=== PATIENT | female | born 1985 | race Caucasian/White ===

== ENCOUNTER 2017-04-15 23:11 | Emergency (ER) | payer BC ==
[~2017-04-15] VITALS: Ht 167.6 cm; Wt 75.2 kg
[~2017-04-15 23:11] MED LIST: NO HOME MEDICATIONS
[2017-04-15 23:13] VITALS: BP 128/85; TEMP 98.5
[2017-04-15] MEDS ORDERED: CELEXA10 MG PO (23:16)
[2017-04-16 00:08] LABS: BASO # 0.1 (0.0-0.2); BASO % 0.9 % (0.0-2.0); EOS # 0.2 (0.0-0.7); EOS % 2.7 % (0-4.0); GRAN # 3.7 (1.4-6.5); GRAN % 54.4 % (42.2-75.2); LYMPH # 2.3 (1.2-3.4); LYMPH % 33.2 % (20.0-51.0); MEAN CELL VOLUME 90 fl (80.0-100.0); MEAN CORPUSCULAR HEMOGLOBIN 30 pg (27.0-31.0); MEAN CORPUSCULAR HGB CONC 33 g/dl (33.0-37.0); MEAN PLATELET VOLUME 10.8 fl (7.4-10.4); MONO # 0.6 (0.1-0.6); MONO % 8.7 % (1.7-9.3); PLATELET COUNT 285 K/mm3 (130-400); RED BLOOD COUNT 4.07 M/mm3 (4.10-5.30); WHITE BLOOD COUNT 6.8 K/mm3 (4.8-10.8)
[2017-04-16 00:10] LABS: HEMATOCRIT 36.6 % (37.0-47.0)
[2017-04-16 00:17] LABS: CALCIUM 8.7 mg/dL (8.4-10.2); CREATININE, serum 0.78 mg/dL (0.52-1.25); POTASSIUM 3.6 mmol/L (3.4-5.0)
[2017-04-16 00:41] VITALS: PULSE 78
== END 2017-04-16 00:42 | disposition home or self-care (01) ==
LOC: COL.ER 23:11
PROVIDERS: Physician Assistant
DX: K62.5 Hemorrhage of anus and rectum (principal); K21.9 Gastro-esophageal reflux disease without esophagitis

== ENCOUNTER → 2017-05-02 | Outpatient (CLI) | payer BC ==
[~2017-05-02] MED LIST changes: +CELEXA10 MG PO
== END ==
LOC: COL.RAD 11:17
DX: J32.0 Chronic maxillary sinusitis (principal)

== ENCOUNTER 2019-11-26 11:57 | Inpatient (IN) | payer BC ==
[~2019-11-26] VITALS: Ht 170.2 cm; Wt 81.8 kg
[2019-11-26] VITALS (41 sets, daily range): BP systolic 98–140; BP diastolic 52–77; PULSE 59–100; TEMP 98.2–98.8
--- NOTE | 2019-11-26 12:00 | NUR ---
Pt here with c/o ?SROM this AM after routine check at the [facility]. States she felt leaking once but then hasn't felt any since. Pt to [facility], explained. 39 weeks gestation, G3L0. SVE: amniotrace negative, brown/red discharge noted on glove. SVE: 2-3//-2 and bag of wtaers palpated. Pt states "she stripped my membranes." Pt states contractions have been every 2-4 minutes. Assessment complete. Pt with hx of GERD, anxiety/depression and migraines. States baby is active. Breathing through contractions every 2-3 minutes. 1215:Pt up and standing at the bedside. VSS. FHR reactive.
[2019-11-26] MEDS ORDERED: PRENATAL PO (12:20)
[2019-11-26 14:32] LABS: BASO % 0.3 % (0.0-2.0); EOS % 0.1 % (0-4.0); GRAN # 11.9 (1.4-6.5); GRAN % 82.8 % (42.2-75.2); HEMATOCRIT 37.7 % (37.0-47.0); HEMOGLOBIN 12.7 g/dl (12.5-16.0); LYMPH # 1.5 (1.2-3.4); LYMPH % 10.6 % (20.0-51.0); MEAN CELL VOLUME 87 fl (80.0-100.0); MEAN CORPUSCULAR HEMOGLOBIN 29 pg (27.0-31.0); MEAN CORPUSCULAR HGB CONC 34 g/dl (33.0-37.0); MEAN PLATELET VOLUME 12.5 fl (7.4-10.4); MONO # 0.8 (0.1-0.6); MONO % 5.6 % (1.7-9.3); PLATELET COUNT 216 K/mm3 (130-400); RED BLOOD COUNT 4.32 M/mm3 (4.10-5.30); REDCELL DISTRIBUTION WIDTH-CV 12.8 % (11.5-14.5)
--- NOTE | 2019-11-26 15:00 | NUR ---
1535- ROLES TO THE BEDSIDE. DISCUSSED PLAN OF CARE. SVE /-1. AROM WITH THICK MECONIUM STAINED FLUID. DISCUSSED PRECAUTIONS WITH PARENTS, THEY DENIED QUESTIONS.
--- NOTE | 2019-11-26 15:30 | NUR ---
1522- FHR DECELERATION NOTED DOWN TO 65BPM. PATIENT REPOSITIONED TO RIGHT LATERAL. EFM TRACING INTERMITTENTLY, ADJUSTED. 1525- FHR TRACING WELL, MODERATE VARIABLITY NOTED THROUGHOUT, RETURNING TO BASELINE.
--- NOTE | 2019-11-26 16:45 | NUR ---
1627- Pt supine for duke placement. 1630- Duke placed without difficulty, attempted SVE. Pt state she "doesnt feel well." FHR deceleration noted down to 90bpm. 1633- Pt assisted to RL. FHR returned to baseline of 135bpm. SVE by AUGUST Ramirez /-1, large amount of pea soup colored and textured fluid noted. 1635- FHR variable noted 1636- FHR variable with slow return to baseline over 50 seconds. After recovery to baseline, minimal variability noted. Subtle late decels noted intermittently over the next 15mins. 1648- FHR variability improves to moderate.
--- NOTE | 2019-11-26 18:40 | NUR ---
FHT's with deceleration to 80's, onset before peak of contraction, continues 70's-80's over 2 minutes, to R wedge, FHT's gtadually to baseline 110's, total duration of decel 3 minutes.
--- NOTE | 2019-11-26 19:20 | NUR ---
Pitocin gtt augmentation started per order and protocol, after explanation to pt and spouse. Questions invited and answered.
--- NOTE | 2019-11-26 20:30 | NUR ---
Roles into room, SVE as noted. Plan of care reviewed; increase Pitocin to increase effectiveness of contractions, continue to monitor FHR. Questions invited and answered
--- NOTE | 2019-11-26 22:15 | NUR ---
FHT's with deceleration to 60's with peak of ontraction, returns to baseline before end of contraction.
--- NOTE | 2019-11-26 22:20 | NUR ---
FHT's with decel to 60's with contraction, returns to baseline by end of contraction then back down to 60's with onset of next contraction, returns to bsline 130's with cessation of contraction.
--- NOTE | 2019-11-26 22:29 | NUR ---
FHT's with decel to 60's, after peak of contraction, continues 60's-90's after cessation of contraction. LR to bolus rate, SVE 5/100 FSE placed, to Right lateral after placement.
--- NOTE | 2019-11-26 22:45 | NUR ---
FHT's woth loss of FSE tracing, US reapplied, FSE and US cincurrently recording 60's with peak of uc. Pitocin gtt off, FHT's with rapid retuen to baseline by end of UC. FHT's with deceleration to 60's with peak of next UC, concurrent FSE and US tracing.
--- NOTE | 2019-11-26 22:55 | NUR ---
To Supine for pericare and FSE replacement. FHT's to 60's with contraction.
--- NOTE | 2019-11-26 23:00 | NUR ---
Roles into room, SVE unchanged. Reviews EFM tracing. Discusses plan of care with pt and spouse. 2310 C/S called. Questions invited and answered. ABD heatherub, GAGANE dc'd, LR continues at bolus rate. To C/S room per bed.
[2019-11-27] VITALS (17 sets, daily range): BP systolic 108–130; BP diastolic 56–74; PULSE 60–96; TEMP 97.9–98.7
--- NOTE | 2019-11-27 00:45 | NUR ---
To room via bed. oriented to romm, plan of care. continues . attentive at bedside.
--- NOTE | 2019-11-27 05:00 | NUR ---
Up to bathroom with steady gait. Long catheter dc'd, pericare performed. Clean gown on and back to bed.
[2019-11-27 06:37] LABS: HEMATOCRIT 32.2 % (37.0-47.0); HEMOGLOBIN 10.6 g/dl (12.5-16.0)
[2019-11-28 01:30] VITALS: BP 113/70; PULSE 72; TEMP 98.1
[2019-11-28 07:40] VITALS: BP 103/59; PULSE 66; TEMP 97.7
[2019-11-28] MEDS ORDERED: IBU600 MG PO (08:58)
[2019-11-28] MEDS ORDERED: PERCOCET 325 MG1 TA2 PO (08:59)
[2019-11-28 16:01] VITALS: BP 120/72; PULSE 63; TEMP 98
[2019-11-28 20:30] VITALS: BP 124/58; PULSE 70; TEMP 98
--- NOTE | 2019-11-28 20:50 | NUR ---
Patient in bathroom and calls out. patient passes apple sized clot in toilet. no free flow bleeding noted. Patient back in bed, fundus massaged, firm and minimal free flow noted with fundal massage. encouraged patient to empty bladder frequently and notify nurse if she continues to pass clots. patient verbalizes understanding.
[2019-11-29 02:30] VITALS: BP 102/61; PULSE 64; TEMP 98.2
[2019-11-29 08:36] VITALS: BP 125/67; PULSE 70; TEMP 98.5
== END 2019-11-29 13:20 | disposition home or self-care (01) | DRG 788 ==
LOC: LDRO 11:57 → LDR 11:59 → LDRO 11:59 → LDR 12:15 → OB 11-27 01:00
PROVIDERS: ADMIT Obstetrics & Gynecology
PROC: 10D00Z1 Extraction of Products of Conception, Low, Open Approach (ICD-10-PCS; principal; 2019-11-27)
DX: O48.0 Post-term pregnancy (principal); Z37.0 Single live birth; O76 Abnormality in fetal heart rate and rhythm complicating labor and delivery; O77.0 Labor and delivery complicated by meconium in amniotic fluid; F41.9 Anxiety disorder, unspecified; O99.344 Other mental disorders complicating childbirth; Z3A.39 39 weeks gestation of pregnancy
CPT/HCPCS: J0690; J1100; J1885; J2175; J2405; J2590; J7120

== ENCOUNTER 2022-08-22 15:18 | Outpatient (CLI) | payer BC ==
[~2022-08-22] VITALS: Ht 167.6 cm; Wt 87.3 kg
[~2022-08-22 15:18] MED LIST changes: +IBU600 MG PO; +PERCOCET 325 MG1 TA2 PO; +PRENATAL PO
--- NOTE | 2022-08-22 15:20 | NUR ---
PT AMBULATORY TO LR2. PT CHANGED INTO CLEAN GOWN. FHR MONITOR/TOCO APPLIED. PT DENIES VAGINAL BLEEDING, LEAKING OF FLUID, OR CONTRACTIONS. PT WENT TO OFFICE COMPLAINING OF DECREASED MOVEMENT. PT SENT OVER FROM OFFICE FOR NON REACTIVE NST. PLAN OF CARE DISCUSSED. PT VALERIEES UNDERSTANDING.
[2022-08-22] MEDS ORDERED: CLARITIN 1010 MG/TAB PO (15:42)
[2022-08-22] MEDS ORDERED: ASPIRIN 81M81 MG/TA2 PO (15:43)
--- NOTE | 2022-08-22 15:50 | NUR ---
PT STATES DOES NOT FEEL CONTRACTIONS THAT ARE PICKING UP ON TOCO
[2022-08-22 16:00] VITALS: BP 122/77; PULSE 71; TEMP 98.4
== END 2022-08-22 16:35 | disposition home or self-care (01) ==
LOC: LDRO 15:18
DX: O36.8330 Maternal care for abnormalities of the fetal heart rate or rhythm, third trimester, not applicable or unspecified (principal); Z3A.35 35 weeks gestation of pregnancy

== ENCOUNTER 2022-09-06 19:37 | Inpatient (IN) | payer BC ==
[2022-09-06] VITALS (14 sets, daily range): BP systolic 113–133; BP diastolic 57–80; PULSE 63–92; TEMP 98
[~2022-09-06] VITALS: Ht 170.2 cm; Wt 86.8 kg
[~2022-09-06 19:37] MED LIST changes: +ASPIRIN 81M81 MG/TA2 PO; +CLARITIN 1010 MG/TAB PO
--- NOTE | 2022-09-06 19:40 | NUR ---
G4L1. 37.4. Ambulatory to LDR 5 with spouse. Clean gown on. EFM and TOCO explained and applied. Pt states around 1845 she had a big contraction and a gush of fluid. Reports clear fluid noted. Denies any contractions since then. Denies vaginal bleeding and reports good movement. Plan of care explained. 1951: Amniotrace positive with clear fluid noted. SVE /-3. 2006: called and updated on pt's status. See physican notification. Admit orders received. 2019: IV started and labs obtained via IV site. LR bolus infusing without difficulty. 2029: at bedside to discuss surgery. Pt and spouse denies questions at that time. Pt prepped for surgery. 2048: Pt off monitors and ambulatory to OR for surgery with this RN and spouse.
[2022-09-06] MEDS ORDERED: CELEXA 20MG20 MG/TAB PO (20:01)
[2022-09-06 20:53] LABS: BASO % 0.3 % (0.0-2.0); EOS # 0.1 K/mm3 (0.0-0.7); EOS % 0.7 % (0.0-4.0); GRAN # 11.1 K/mm3 (1.4-6.5); GRAN % 78.5 % (42.2-75.2); HEMOGLOBIN 11.6 g/dl (12.5-16.0); LYMPH # 1.9 K/mm3 (1.2-3.4); LYMPH % 13.6 % (20.0-51.0); MEAN CELL VOLUME 85 fl (80.0-100.0); MEAN CORPUSCULAR HEMOGLOBIN 29 pg (27-31); MEAN CORPUSCULAR HGB CONC 34 g/dl (33.0-37.0); MONO # 0.9 K/mm3 (0.1-0.6); MONO % 6.4 % (1.7-9.3); PLATELET COUNT 216 K/mm3 (130-400); REDCELL DISTRIBUTION WIDTH-CV 13.4 % (11.5-14.5)
[2022-09-06 20:55] LABS: HEMATOCRIT 33.9 % (37.0-47.0)
[2022-09-07] VITALS (8 sets, daily range): BP systolic 116–135; BP diastolic 61–83; PULSE 65–80; TEMP 97.3–98.6
--- NOTE | 2022-09-07 06:42 | NUR ---
REPORT RECIEVED FROM RECONCILER RN AT [phone]
--- NOTE | 2022-09-07 09:10 | NUR ---
Initial visit attempt; Family resting, Car Lot Attendant left card offering Congratulations and God's blessings for the of their son along with information regarding the availability of Spiritual Care at [facility]/.
--- NOTE | 2022-09-07 16:43 | NUR ---
1630 RN BEDSIDE; PROVIDES PT WITH HEATING PAD FOR BACK PAIN
--- NOTE | 2022-09-07 18:05 | NUR ---
1800 RN CALLS DARRICK MARTIN, UPDATES MD ON PT RATING PAIN 9 OUT OF 10 AND TEARFUL. RN UPDATES MD ON MEDICATIONS LAST GIVEN AND WHEN. ORDERS FOR 2.5 MG OF OXYCODONE NOW AND 200 MG OF IBUPROFEN NOW. MD ORDERS TO CHANGE SCHEDULED DOSE OF IBUPROFEN TO 800 MG Q 8 HR AND 7.5 MG OF OXYCODONE Q 4 HR PRN. RN READ BACK AND VERIFIED ORDER.
--- NOTE | 2022-09-07 18:21 | NUR ---
1815 RN BEDSIDE; UPDATES PT ON POC. PT VERBALIZES UNDERSTANDING AND HAS NO QUESTIONS AT THIS TIME.
--- NOTE | 2022-09-07 18:24 | NUR ---
PT TEARFUL; RN CALLS MD
[2022-09-08 07:20] VITALS: BP 111/72; PULSE 73; TEMP 97.6
--- NOTE | 2022-09-08 09:12 | NUR ---
0730 PT REPORTS "STABBING PAIN, LIKE A KNIFE"-INCISION AND WOULD LIKE TO HAVE MARY Q4H. PT RATED PAIN 5 OUT OF 10.
[2022-09-08] MEDS ORDERED: IBU800 M1 PO (10:30)
[2022-09-08] MEDS ORDERED: ROXICODONE 55 MG/TAB PO (10:31)
[2022-09-08 17:12] VITALS: BP 120/68; PULSE 68; TEMP 97.7
[2022-09-08 21:00] VITALS: BP 125/77; PULSE 89; TEMP 97.5
[2022-09-09 07:10] VITALS: BP 119/68; PULSE 72; TEMP 98.6
--- NOTE | 2022-09-09 12:21 | NUR ---
Floor Coverings Installer rounds: Floor Coverings Installer provided blessing for Baby Vega Narvaez. Floor Coverings Installer provided Mother with a bible, a certificate, and a rosary.
[2022-09-09] MEDS ORDERED: PERCOCET 325 MG1 TA2 PO (13:24)
== END 2022-09-09 16:40 | disposition home or self-care (01) | DRG 788 ==
LOC: LDRO 19:37 → LDR 20:13 → LDRO 20:14 → OB 20:15 → LDR 20:15 → OB 09-07 01:06
PROVIDERS: ADMIT Obstetrics & Gynecology
PROC: 10D00Z1 Extraction of Products of Conception, Low, Open Approach (ICD-10-PCS; principal; 2022-09-06)
DX: O34.211 Maternal care for low transverse scar from previous cesarean delivery (principal); O99.344 Other mental disorders complicating childbirth; F41.9 Anxiety disorder, unspecified; Z3A.37 37 weeks gestation of pregnancy; Z37.0 Single live birth; F32.A Depression, unspecified; Z86.16 Personal history of COVID-19; Z90.49 Acquired absence of other specified parts of digestive tract
CPT/HCPCS: J0690; J1100; J1885; J2405; J2590; J2765; J7120